=== PATIENT | male | born 1980 | race Caucasian/White ===

== ENCOUNTER 2020-06-09 12:05 | Emergency (ER) | payer OTHER, SELFPAY ==
--- NOTE | ~2020-06-09 | XR_ITS ---
EXAMINATION: XR finger 1st LT min 2V EXAM DATE: 06/09/2020 12:48 INDICATION: Initial encounter following injury, with pain of the left 1st finger TECHNIQUE: Left 1st finger frontal, lateral and oblique projections obtained and reviewed. There i s no prior study for comparison. FINDINGS: There is left 1st tuft chip fracture, with overlying laceration. This potentially could be open, the soft tissue is obscured by overlying bandage. Otherwise the 1st digit is unremarkable. IMPRESSION: Left 1st tuft fracture, possibly open. Clinical correlation. Reviewed, dictated and finalized at location A. TICAL SCIENCE INSTRUCTOR
[2020-06-09 12:24] VITALS: BP 140/75; PULSE 112; RESP 16; TEMP 37; O2SAT 100
--- NOTE | 2020-06-09 14:29 | ED.UPPEXIN ---
HPI - Extremity Injury (Upper) General Chief Complaint: Extremity Injury, Upper Stated Complaint: left thumb injury Time Seen by Provider: 06/09/20 12:53 Source: patient Mode of arrival: ambulatory Limitations: no limitations History of Present Illness HPI narrative: Patient complaining of left thumb pain after accidentally smashing it with an iron prior to arrival. Patient states his pain is a 10 out of 10. Denies any other pain or injury. Related Data Allergies Allergy/AdvReac Type Severity Reaction Status Date / Time No Known Allergies Allergy Verified 06/09/20 12:47 Review of Systems Review of Systems: All systems reviewed & are unremarkable except as noted in HPI and below Exam Const: General: no acute distress HENMT: Head: normal to inspection Eyes: Conjunctivae: conjunctivae normal Neck: Neck: normal visual inspection Resp: Effort & Inspection: normal respiratory effort Extrem: Other: Mild active bleeding of the left first digit. left first digit subungual hematoma. 1 cm superficial laceration left first digit palmar aspect. Course Vital Signs Vital signs: Vital Signs Temperature 37.0 C 06/09/20 12:24 Pulse Rate 112 H 06/09/20 12:24 Respiratory Rate 16 06/09/20 12:24 Blood Pressure 140/75 06/09/20 12:24 Pulse Oximetry 100 06/09/20 12:24 Temperature 37.0 C 06/09/20 12:24 Pulse Rate 112 H 06/09/20 12:24 Respiratory Rate 16 06/09/20 12:24 Blood Pressure 140/75 06/09/20 12:24 Pulse Oximetry 100 06/09/20 12:24 Procedures Laceration Laceration 1: Date: 06/09/20 Time: 15:10 Site: hand Side (If applicable): left Description: linear Depth: simple, single layer Local Anesthetic: lidocaine 1% Amount of anesthesia used (mL): 2 Pre-repair: irrigated ====== Skin Level ====== Size (cm): 5-0 Number of sutures: 2 Technique: simple, interrupted ====== Subcutaneous Layer ====== ====== Muscle Layer ====== ====== Tendon Layer ====== MDM - Extremity Injury (Upper) [facility] Narrative Medical decision making narrative: Discussed with Dr. Hutson, advised to follow-up with him tomorrow. Patient verbalized understanding of plan and states he will comply. Differential Diagnosis Differential diagnosis: Likely finger sprain, dislocation of finger and fracture of hand Discharge Plan Discharge Clinical Impression: Open fracture of tuft of distal phalanx of finger Patient Disposition: Home, Self-Care Condition: Improved Instructions: Antibiotic Form, Finger Fracture (ED) Prescriptions: New hydrocodone-acetaminophen [[place]] 5-325 mg tablet 1 tablet PO Q8H PRN (Reason: pain) Qty: 12 RF: 0 cephalexin [Keflex] 500 mg capsule 500 mg PO Q12H Qty: 14 RF: 0 Follow-up/Referrals: Davey Jose MD [Physician] - 06/10/20 PHYSICIAN,SOLUTIONS DELIVERY CONSULTANT [Primary Care Provider] - Time of Disposition: 15:13
[2020-06-09] MEDS: KETOROLAC (*BKC) 60 MG/2 ML VIAL 30 MG IM (14:37)
[2020-06-09] MEDS: HYDROcodone/acetaminophen (*CRX) 5-325 MG TABLET 2 TAB PO (14:37)
[2020-06-09] MEDS: ceFAZolin SODIUM 1 GM VIAL IM (14:37)
[2020-06-09] MEDS: WATER, STERILE FOR INJECTION 10 ML VIAL XX (14:47)
[2020-06-09 16:51] VITALS: BP 132/89; PULSE 76; RESP 14; O2SAT 99
== END 2020-06-09 16:51 | disposition home or self-care (01) ==
PROVIDERS: Emergency Provider Emergency Medicine
DX: S62.522B Displaced fracture of distal phalanx of left thumb, initial encounter for open fracture (principal); W23.0XXA Caught, crushed, jammed, or pinched between moving objects, initial encounter
CPT/HCPCS: 12001; 73140; 96372; 99284; A9270; J0690; J1885

== ENCOUNTER 2021-06-01 09:02 | Emergency (ER) | payer SELFPAY ==
[2021-06-01 09:10] VITALS: BP 144/88; PULSE 94; RESP 16; TEMP 36.8; O2SAT 100
--- NOTE | 2021-06-01 09:55 | ED.DENTAL ---
HPI - Dental/Oral General Chief complaint: Dental/Oral Stated complaint: TOOTHACHE Time Seen by Provider: 06/01/21 09:08 Source: patient Mode of arrival: ambulatory Limitations: no limitations History of Present Illness HPI Narrative: This is a 40-year-old male that presents to the emergency department for toothache present over the last couple of weeks. Reports he has upper and lower molars that have been painful. He has not been able to get into see a dentist. He has been taking [id number] medications with little relief. Denies fever, erythema, edema, or abnormal drainage. MD Complaint: tooth pain Location: Tooth # (3, 30) Related Data Allergies Allergy/AdvReac Type Severity Reaction Status Date / Time No Known Allergies Allergy Verified 06/01/21 09:30 Review of Systems Review of Systems: CONSTITUTIONAL: Denies fever ENT: Reports dentalgia All systems reviewed & are unremarkable except as noted in HPI and below PMFSH Past Medical History Medical History (Updated 06/01/21 @ 09:58 by Nella Hamm PA-C) No active medical problems Surgical History Surgical History History of wisdom tooth extraction 2003 Social History Social History Smoking status: Current every day smoker Tobacco type: e-cigarettes/vaping Alcohol intake: never Substance use: never Substance use type: does not use Exam Narrative: GENERAL: Well-appearing, well-nourished, and in no acute distress. HEAD: Normocephalic, atraumatic. EYES: EOMI. ENT: Mucous membranes moist. Oropharynx without tonsillar hypertrophy exudate or other lesions. Tooth # 3 and 30 tender to palpation without surrounding erythema or edema to suggest abscess NECK: Supple. No adenopathy or masses. CHEST: Clear to auscultation. No respiratory distress. No wheezes rales or rhonchi HEART: Regular rate and rhythm. No murmur heard. Normal peripheral pulses. EXTREMITIES: Normal range of motion. No edema. SKIN: Warm, dry, no rash. NEURO: No focal deficits. Alert and oriented x3. PSYCH: Normal mood and affect Course Vital Signs Vital signs: Vital Signs Temperature 98.2 F 06/01/21 09:10 Pulse Rate 94 11/02/21 09:10 Respiratory Rate 16 06/01/21 09:10 Blood Pressure 144/88 H 06/01/21 09:10 Pulse Oximetry 100 06/01/21 09:10 Temperature 98.2 F 06/01/21 09:10 Pulse Rate 94 06/01/21 09:10 Respiratory Rate 16 06/01/21 09:10 Blood Pressure 144/88 H 06/01/21 09:10 Pulse Oximetry 100 06/01/21 09:10 MDM - Dental/Oral MDM Narrative Medical decision making narrative: Patient presents to the emergency department for tooth ache present over the last couple of weeks. He is afebrile and nontoxic-appearing. No findings on exam to suggest abscess. Patient will be started on oral antibiotics and was instructed to follow-up with a dentist. He was given warnings to return to the ER Critical Care Time Critical Care Time Critical Care Time: No Discharge Plan Discharge Clinical Impression: Toothache Patient Disposition: Home, Self-Care Condition: Stable Instructions: Antibiotic Form, Toothache (ED) Additional Instructions: Return to the Emergency Department if you experience fever >101, increasing swelling and redness of your tooth, or any other symptoms that are concerning to you Take antibiotic as prescribed. Tylenol or Ibuprofen as needed for pain. You can apply a dab of clove oil to a Qtip and apply to the tooth to help numb the area Follow up with a dentist. [facility], Dr. Harjinder Simons if needed Prescriptions: New amoxicillin-pot clavulanate [Augmentin] 875-125 mg tablet 1 tablet PO Q12H 7 Days Qty: 14 RF: 0 No Action hydrocodone-acetaminophen [[place]] 5-325 mg tablet 1 tablet PO Q8H PRN (Reason: pain) Qty: 12 RF: 0 cephalexin [Keflex] 500 mg capsule 500 mg PO Q12H
[2021-06-01] MEDS: KETOROLAC (*BKC) 60 MG/2 ML VIAL IM (10:20)
[2021-06-01] MEDS: AMOXICILLIN/CLAVULANATE K 875-125 MG TAB 1 TABLET PO (10:20)
== END 2021-06-01 10:25 | disposition home or self-care (01) ==
PROVIDERS: Emergency Provider Emergency Medicine
DX: K08.89 Other specified disorders of teeth and supporting structures (principal)
CPT/HCPCS: 96372; 99283; A9270; J1885

== ENCOUNTER 2024-09-20 12:13 | Emergency (ER) | payer OTHER, MEDICAID, SELFPAY ==
--- OUTSIDE RECORDS SUMMARY | 2024-09-20 12:16 | XMS_ITS | Referral Summary ---
Author Organization [facility] Address [address] [place] [address] [place] [address] Care Team Providers Care Shared Services And Outsourcing Manager Name Role Phone No, Physician Primary Care Provider [phone] Allergies No known active allergies Medications No known medications Social History Tobacco Use Types Packs/Day Years Used Date Smoking Tobacco: Never Assessed Personal Safety Answer Date Recorded Have you ever been in or are you currently in a harmful physical or emotional relationship or is someone making you feel afraid or unsafe? Denies 06/05/2023 Sex and Gender Information Value Date Recorded Sex Assigned at Not on file Legal Sex Male 7:58 PM DONOR SUPPORT TECHNICIAN Gender Identity Not on file Sexual Orientation Not on file Last Filed Vital Signs Vital Sign Reading Time Taken Comments Blood Pressure 141/86 06/05/2023 10:07 AM DONOR SUPPORT TECHNICIAN Pulse 97 06/05/2023 10:07 AM DONOR SUPPORT TECHNICIAN Temperature 36.3 C (97.3 F) 06/05/2023 10:07 AM DONOR SUPPORT TECHNICIAN Respiratory Rate 20 06/05/2023 10:07 AM DONOR SUPPORT TECHNICIAN Oxygen Saturation 100% 06/05/2023 10:07 AM DONOR SUPPORT TECHNICIAN Inhaled Oxygen Concentration - - Weight 63.5 kg (140 lb) 06/05/2023 10:07 AM DONOR SUPPORT TECHNICIAN Height 177.8 cm (5' 10 ) 06/05/2023 10:07 AM DONOR SUPPORT TECHNICIAN Body Mass Index 20.09 06/05/2023 10:07 AM DONOR SUPPORT TECHNICIAN Plan of Treatment Not on file Insurance [place] B[place] [id number] [employer] Care Teams Shared Services And Outsourcing Manager Relationship Specialty Start Date End Date No, Physician PCP - General 06/05/23
--- OUTSIDE RECORDS SUMMARY | 2024-09-20 12:16 | XMS_ITS | Clinical Summary ---
Author Organization [facility] Address [address] [place] [address] Care Team Providers Care Language Specialist Name Role Phone Unavailable Primary Care Provider Unavailabl e Source Comments [facility],non-owned Affiliates and Associated Physician Practices is amultiple site organization consisting of ambulatory clinics and hospital sitesin [place], [place], [place] and [place]. This disclosure is being madepursuant to the Care Everywhere program and may not contain all information available regarding this patient. Last updated 18.[facility] Allergies No known active allergies Medications Be aware that medications may not be up to date on this document. Always verify current medications with the patient. No known medications Social History Tobacco Use Types Packs/Day Years Used Date Smoking Tobacco: Never Smokeless Tobacco: Never Comments:vapes Sex and Gender Information Value Date Recorded Sex Assigned at Not on file Gender Identity Not on file Sexual Orientation Not on file Last Filed Vital Signs Vital Sign Reading Time Taken Comments Blood Pressure 112/70 05/26/2020 9:10 AM CDT Pulse 83 05/26/2020 9:10 AM CDT Temperature 36.8 C (98.2 F) 05/26/2020 9:10 AM CDT Respiratory Rate 14 05/26/2020 9:10 AM CDT Oxygen Saturation 98% 05/26/2020 9:10 AM CDT Inhaled Oxygen Concentration - - Weight 63.5 kg (140 lb) 05/26/2020 9:10 AM CDT Height 177.8 cm (5' 10 ) 05/26/2020 9:10 AM CDT Body Mass Index 20.09 05/26/2020 9:10 AM CDT Plan of Treatment Health Maintenance Due Date Last Done Comments LIPID TESTING 1982 HIV SCREENING 1997 HEPATITIS C SCREENING 07/20/2000 DTAP/TDAP/TD VACCINES (1 - Tdap) 2001 HEPATITIS B VACCINE (1 of 3 - 19+ 3-dose series) 2001 COVID-19 VACCINE (1 - 2023-2 5 season) 2024 INFLUENZA VACCINE (#1) 2024 DEPRESSION SCREENING 07/31/2024 ZOSTER VACCINE (1 of 2) 2032 HIB VACCINE Aged Out No longer eligi ble based on patient's age to complete this topic HPV VACCINE Aged Out No longer eligi ble based on patient's age to complete this topic MENINGOCOCCAL (Group B) VACCINE Aged Out No longer eligible based on patient's age to complete this topic MENINGOCOCCAL VACCINE Aged Out No hamilton karen eligible based on patient's age to complete this topic PNEUMOCOCCAL VACCINE Aged Out No long er eligible based on patient's age to complete this topic
--- OUTSIDE RECORDS SUMMARY | 2024-09-20 12:16 | XMS_ITS | Referral Summary ---
Author Organization [facility] Address [address] [place] [address] Care Team Providers Care Barrel Handler Name Role Phone Unavailable Primary Care Provider Unavailabl e Source Comments [facility],non-owned Affiliates and Associated Physician Practices is amultiple site organization consisting of ambulatory clinics and hospital sitesin [place], [place], [place] and [place]. This disclosure is being madepursuant to the Care Everywhere program and may not contain all information available regarding this patient. Last updated 18.[facility] Allergies No known active allergies Medications Be [...] 05/26/2020 9:10 AM CDT Plan of Treatment Not on file
--- OUTSIDE RECORDS SUMMARY | 2024-09-20 12:16 | XMS_ITS | Clinical Summary ---
Author Organization [facility] Address [address] [address] Care Team Providers Care Light Industrial Supervisor Name Role Phone Unavailable Primary Care Provider Unavailabl e Allergies No known active allergies Medications No known medications Active Problems Problem Noted Date Diagnosed Date Major depressive disorder, recurrent episode, mo derate 2023 Encounters Date Type Department Care Team Description 08/22/2024 External Device Data [facility] ABSTRACTION Provider, Abstract from Last 3 Months Family History Relation Name Status Comments Father Alive Mother Alive Social History Tobacco Use Types Packs/Day Years Used Date Smoking Tobacco: Never Passive Smoke Exposure: Never Smokeless Tobacco: Never Tobacco Cessation:Counseling Given: No Alcohol Use Standard Drinks/Week Comments Yes 0 (1 standard drink = 0.6 oz pur e alcohol) Sex and Gender Information Value Date Recorded Sex Assigned at Not on file Legal Sex Male 9:02 AM IMAGING TECH Gender Identity Not on file Sexual Orientation Not on file Last Filed Vital Signs Vital Sign Reading Time Taken Comments Blood Pressure 130/89 08/28/2023 11:59 AM IMAGING TECH Pulse 104 08/28/2023 11:59 AM IMAGING TECH Temperature 36.7 C (98.1 F) 07/10/2023 7:57 AM IMAGING TECH Respiratory Rate 18 06/05/2023 9:13 AM IMAGING TECH Oxygen Saturation 98% 08/28/2023 11: 59 AM IMAGING TECH Inhaled Oxygen Concentration - - Weight 66.1 kg (145 lb 12.8 oz) 024 11:59 AM IMAGING TECH Height 175.3 cm (5' 9 ) 08/28/2023 11:5 9 AM IMAGING TECH Body Mass Index 21.53 08/28/2023 11:59 AM IMAGING TECH Plan of Treatment Health Maintenance Due Date Last Done Comments DTAP/TDAP/TD VACCINES (1 - Tdap) 2001 HEPATITIS B VACCINES (1 of 3 - 19+ 3-dose series) 2001 INFLUENZA VACCINE (#1) 2024 HPV VACCINES Aged Out No longer eligi ble based on patient's age to complete this topic PNEUMOCOCCAL VACCINE 0-64 YEARS Aged Out No longer eligible based on patient's age to complete this topic Insurance [employer]US [employer] ACCESS H[employer]
--- OUTSIDE RECORDS SUMMARY | 2024-09-20 12:16 | XMS_ITS | Clinical Summary ---
Author Organization [facility] Address [address] [place] [address] [place] [address] Care Team Providers Care Stadium Attendant Name Role Phone No, Physician Primary Care Provider [phone] Allergies No known active allergies Medications No [...] on file Legal Sex Male 7:58 PM PENCIL SORTER Gender Identity Not on file Sexual Orientation Not on file Last Filed Vital Signs Vital Sign Reading Time Taken Comments Blood Pressure 141/86 06/05/2023 10:07 AM PENCIL SORTER Pulse 97 06/05/2023 10:07 AM PENCIL SORTER Temperature 36.3 C (97.3 F) 06/05/2023 10:07 AM PENCIL SORTER Respiratory Rate 20 06/05/2023 10:07 AM PENCIL SORTER Oxygen Saturation 100% 06/05/2023 10:07 AM PENCIL SORTER Inhaled Oxygen Concentration - - Weight 63.5 kg (140 lb) 06/05/2023 10:07 AM PENCIL SORTER Height 177.8 cm (5' 10 ) 06/05/2023 10:07 AM PENCIL SORTER Body Mass Index 20.09 06/05/2023 10:07 AM PENCIL SORTER Plan of Treatment Health Maintenance Due Date Last Done Comments Depression Screening 1982 Hepatitis C Screening 1982 DTaP/Tdap/Td Vaccine (1 - Tdap) 1993 Varicella Vaccines (1 of 2 - 13+ 2-dose series) 1995 Hepatitis B Screening 2000 Regular Well Visit/Exam 18-64 2000 Influenza Vaccine (#1) 2024 HPV Vaccines Aged Out No longer eligi ble based on patient's age to complete this topic Pneumococcal vaccine <65 Aged Out No longer eligible based on patient's age to [place] [address] [facility] Care Teams Stadium Attendant Relationship Specialty Start Date End Date No, Physician PCP - General 06/05/23
--- OUTSIDE RECORDS SUMMARY | 2024-09-20 12:16 | XMS_ITS | Patient Health Summary ---
Author Organization [facility] Address [address] [place] [address] Care Team Providers Care Pasting Machine Offbearer Name Role Phone Unavailable Primary Care Provider Unavailabl e Note from [facility],non-owned Affiliates and Associated Physician Practices is amultiple site organization consisting of ambulatory clinics and hospital sitesin [place], [place], [place] and [place]. This disclosure is being madepursuant to the Care Everywhere program and may not contain all information available regarding this patient. Last updated 18.[facility] Allergies No known active allergies Medications Be [...] Mass Index 20.09 05/26/2020 9:10 AM CDT Procedures * COVID-19 SARS-COV-2 PCR QUAL ([facility])(Performed 05/26/2020) Performed for Acute non-recurrent frontal sinusitis * STREP A SCREEN - POINT OF CARE (AMB) [facility](Performed 05/26/2020) Performed for Acute non-recurrent frontal sinusitis * STREP A SCREEN - POINT OF CARE (AMB) [facility](Performed 06/09/2019) Performed for Acute ethmoidal sinusitis, recurrence not specified Results * COVID-19 SARS-COV-2 PCR QUAL ([facility]) (05/26/2020 9:33 AM CDT) SARS-CoV-2 PAIGE Not Detected Not Detected [facility] ACCOUNT BILL Comment: This nucleic acid amplification test was developed and its performance characteristics determined by [facility]. Nucleic acid amplification tests include PCR and TMA. This test has not been FDA cleared or approved. This test has been authorized by FDA under an Emergency Use Authorization (EUA). This test is only authorized for the duration of time the declaration that circumstances exist justifying the authorization of the emergency use of in vitro diagnostic tests for detection of SARS-CoV-2 virus and/or diagnosis of COVID-19 infection under section 564(b)(1) of the Act, 21 U.S.C. 360bbb-3(b) (1), unless the authorization is terminated or revoked sooner. When diagnostic testing is negative, the possibility of a false negative result should be considered in the context of a patient's recent exposures and the presence of clinical signs and symptoms consistent with COVID-19. An individual without symptoms of COVID-19 and who is not shedding SARS-CoV-2 virus would expect to have a negative (not detected) result in this assay. Microbiology SPECIMEN FROM NASOPHARYNGEAL STRUCTURE / Unknown 05/26/2020 9:33 AM CDT 05/26/2020 Narrative Resulting Agency Comment Lab Testing performed at: [facility] [address] [facility] [place] [id number] Jessica Choe APRN-PREFORM PLATE MAKER LAB - MICROBIO LOGY ORDERABLES [facility] ACCOUNT BILL [id number] [place] [address] * STREP A SCREEN - POINT OF CARE (AMB) [facility] (05/26/2020) Only the most recent of2 resultswithin the time period is included. Strep A Rapid POCT Negative Negative Strep A Internal Control Present Lot # [id number] Expiration Date 05/30/2021 Throat ENTIRE THROAT (SURFACE REGION OF NECK) / Unknown 05/26/2020 Jessica Choe APRN-PREFORM PLATE MAKER LAB - POINT OF CARE ORDERABLES
[2024-09-20 12:33] VITALS: BP 157/94; PULSE 93; RESP 16; TEMP 36.6; O2SAT 100
--- NOTE | 2024-09-20 14:10 | PC.NURSE ---
Pt. significant other approached nurses station stating they are leaving the ED.
--- OUTSIDE RECORDS SUMMARY | 2024-09-20 14:14 | XMS_ITS | Referral Summary ---
Author Organization [facility] Address [address] [place] [address] [place] [address] Care Team Providers Care Rum Processing Operator Name Role Phone No, Physician Primary Care Provider [phone] Allergies No known active allergies Medications No [...] on file Legal Sex Male 7:58 PM ELIGIBILITY MANAGER Gender Identity Not on file Sexual Orientation Not on file Last Filed Vital Signs Vital Sign Reading Time Taken Comments Blood Pressure 141/86 06/05/2023 10:07 AM ELIGIBILITY MANAGER Pulse 97 06/05/2023 10:07 AM ELIGIBILITY MANAGER Temperature 36.3 C (97.3 F) 06/05/2023 10:07 AM ELIGIBILITY MANAGER Respiratory Rate 20 06/05/2023 10:07 AM ELIGIBILITY MANAGER Oxygen Saturation 100% 06/05/2023 10:07 AM ELIGIBILITY MANAGER Inhaled Oxygen Concentration - - Weight 63.5 kg (140 lb) 06/05/2023 10:07 AM ELIGIBILITY MANAGER Height 177.8 cm (5' 10 ) 06/05/2023 10:07 AM ELIGIBILITY MANAGER Body Mass Index 20.09 06/05/2023 10:07 AM ELIGIBILITY MANAGER Plan of Treatment Not on file Insurance [place] [id number] [employer] Care Teams Rum Processing Operator Relationship Specialty Start Date End Date No, Physician PCP - General 06/05/23
--- OUTSIDE RECORDS SUMMARY | 2024-09-20 14:14 | XMS_ITS | Clinical Summary ---
Author Organization [facility] Address [address] [address] Care Team Providers Care Continuous Linter Drier Operator Name Role Phone Unavailable Primary Care Provider [...] on file Legal Sex Male 9:02 AM CONSULTANT ELECTRONICS Gender Identity Not on file Sexual Orientation Not on file Last Filed Vital Signs Vital Sign Reading Time Taken Comments Blood Pressure 130/89 08/28/2023 11:59 AM CONSULTANT ELECTRONICS Pulse 104 08/28/2023 11:59 AM CONSULTANT ELECTRONICS Temperature 36.7 C (98.1 F) 07/10/2023 7:57 AM CONSULTANT ELECTRONICS Respiratory Rate 18 06/05/2023 9:13 AM CONSULTANT ELECTRONICS Oxygen Saturation 98% 08/28/2023 11: 59 AM CONSULTANT ELECTRONICS Inhaled Oxygen Concentration - - Weight 66.1 kg (145 lb 12.8 oz) 024 11:59 AM CONSULTANT ELECTRONICS Height 175.3 cm (5' 9 ) 08/28/2023 11:5 9 AM CONSULTANT ELECTRONICS Body Mass Index 21.53 08/28/2023 11:59 AM CONSULTANT ELECTRONICS Plan of Treatment Health Maintenance Due Date [...] patient's age to complete this topic Insurance [employer] ACCESS [employer]US [employer] ACCESS HMO
--- OUTSIDE RECORDS SUMMARY | 2024-09-20 14:14 | XMS_ITS | Clinical Summary ---
Author Organization [facility] Address [address] [place] [address] Care Team Providers Care Certified Nurse Midwife Name Role Phone Unavailable Primary Care Provider Unavailabl e Source Comments [facility],non-owned Affiliates and Associated Physician Practices is amultiple site organization consisting of ambulatory clinics and hospital sitesin [place], [place], [place] and [place]. This disclosure is being madepursuant to the Care Everywhere program and may not contain all information available regarding this patient. Last updated 18.[facility] Allergies No known active allergies Medications Be [...]
--- OUTSIDE RECORDS SUMMARY | 2024-09-20 14:14 | XMS_ITS | Clinical Summary ---
Author Organization [facility] Address [address] [place] [address] [place] [address] Care Team Providers Care Hand Finisher Name Role Phone No, Physician Primary Care Provider [phone] Allergies No known active allergies Medications No [...] on file Legal Sex Male 7:58 PM OLERICULTURE PROFESSOR Gender Identity Not on file Sexual Orientation Not on file Last Filed Vital Signs Vital Sign Reading Time Taken Comments Blood Pressure 141/86 06/05/2023 10:07 AM OLERICULTURE PROFESSOR Pulse 97 06/05/2023 10:07 AM OLERICULTURE PROFESSOR Temperature 36.3 C (97.3 F) 06/05/2023 10:07 AM OLERICULTURE PROFESSOR Respiratory Rate 20 06/05/2023 10:07 AM OLERICULTURE PROFESSOR Oxygen Saturation 100% 06/05/2023 10:07 AM OLERICULTURE PROFESSOR Inhaled Oxygen Concentration - - Weight 63.5 kg (140 lb) 06/05/2023 10:07 AM OLERICULTURE PROFESSOR Height 177.8 cm (5' 10 ) 06/05/2023 10:07 AM OLERICULTURE PROFESSOR Body Mass Index 20.09 06/05/2023 10:07 AM OLERICULTURE PROFESSOR Plan of Treatment Health Maintenance Due Date [...] to complete [place] [address] [facility] Care Teams Hand Finisher Relationship Specialty Start Date End Date No, Physician PCP - General 06/05/23
--- OUTSIDE RECORDS SUMMARY | 2024-09-20 14:14 | XMS_ITS | Patient Health Summary ---
Author Organization [facility] Address [address] [place] [address] Care Team Providers Care Email Marketing Intern Name Role Phone Unavailable Primary Care Provider Unavailabl e Note from [facility],non-owned Affiliates and Associated Physician Practices is amultiple site organization consisting of ambulatory clinics and hospital sitesin [place], [place]. This disclosure is being madepursuant to the Care Everywhere program and may not contain all information available regarding this patient. Last updated 18.[facility] Allergies No known active allergies Medications Be [...] developed and its performance characteristics determined by [employer]. Nucleic acid amplification tests include PCR and [...] Resulting Agency Comment Lab Testing performed at: [facility] [address] [facility] [place] [id number] Jessica Choe APRN-[facility] - MICROBIO LOGY ORDERABLES [facility] ACCOUNT BILL [address] [place] [address] * STREP A SCREEN - POINT OF CARE (AMB) STL (05/26/2020) Only the most recent of2 resultswithin the time period is included. Strep A Rapid POCT Negative Negative Strep A Internal Control Present Lot # [id number] Expiration Date 05/30/2021 Throat ENTIRE THROAT (SURFACE REGION OF NECK) / Unknown 05/26/2020 Jessica Choe APRN[facility] - POINT OF CARE ORDERABLES
--- OUTSIDE RECORDS SUMMARY | 2024-09-20 14:14 | XMS_ITS | Referral Summary ---
Author Organization [facility] Address [address] [place] [address] Care Team Providers Care Executive Asst Name Role Phone Unavailable Primary Care Provider Unavailabl e Source Comments [facility],non-owned Affiliates and Associated Physician Practices is amultiple site organization consisting of ambulatory clinics and hospital sitesin [place], [place], [place] and [place]. This disclosure is being madepursuant to the Care Everywhere program and may not contain all information available regarding this patient. Last updated 18.[facility] Allergies No known active allergies Medications Be [...]
== END 2024-09-20 14:13 | disposition left against medical advice (07) ==
LOC: ANHED 14:12
DX: R10.32 Left lower quadrant pain (principal)
CPT/HCPCS: 99199